=== PATIENT | male | born 1980 | race Caucasian/White ===

== ENCOUNTER 2022-08-02 23:58 | Emergency (ER) | payer OTHER ==
--- NOTE | 2022-08-03 00:38 | ERPHSYRPT ---
- History of Present Illness Time Seen by Provider: 08/03/22 00:33 Source: patient Patient Subjective Stated Complaint: pt states he got up from his chair at 1030 last evening, and tried to put weight on the right foot and states he could not put any weight on it because of the shooting pain in the top and sides of foot which he rates severity of pain 7/10. pt states he has not to his knowledge sustained any prior injury to the right foot. Triage Nursing Assessment: pt is alert and oriented, wheeled back to room in wheelchair unable to put weight on r foot. no swelling or obvious injury present on r foot. Physician History: Patient is a 41-year-old male presents to our ED for evaluation of pain to his right foot. Patient states he was at work. Patient was sitting in transition from sit to stand. Patient placed weight on his right foot and felt a shooting pain at the anteromedial aspect of his right foot. No blunt trauma. No falls. Pain is 7 out of 10. Patient declined pain medication. Patient voices no other complaints or concerns at this time. Portions of this note were created with voice recognition technology. There may be grammatical, spelling, punctuation or sound alike errors Method of Injury: other Occurred: just prior to arrival Quality: constant Severity of Pain-Max: moderate Severity of Pain-Current: mild Lower Extremities Pain: foot: right Modifying Factors: Improves With: movement Associated Symptoms: none Allergies/Adverse Reactions: No Known Drug Allergies Allergy (Unverified 08/03/22 00:17) Travel Risk - International Travel Have you traveled outside of the country in past 3 weeks: No - Coronavirus Screening Are you exhibiting any of the following symptoms?: No Close contact with a COVID-19 positive Pt in past 14-21 Days: No - Vaccine Status Have you recieved a Covid-19 vaccination: Yes Learn To Swim Instructor: Unknown - Vaccination Dates Dates if Unknown: unknown - Review of Systems Constitutional: No Symptoms, No Fever, No Chills Eyes: No Symptoms Ears, Nose, & Throat: No Symptoms Respiratory: No Symptoms, No Cough, No Dyspnea Cardiac: No Symptoms, No Chest Pain, No Edema, No Syncope Abdominal/Gastrointestinal: No Symptoms, No Abdominal Pain, No Nausea, No Vomiting, No Diarrhea Genitourinary Symptoms: No Symptoms, No Dysuria Musculoskeletal: No Symptoms, No Back Pain, No Neck Pain Skin: No Symptoms, No Rash Neurological: No Symptoms, No Dizziness, No Focal Weakness, No Sensory Changes Psychological: No Symptoms Endocrine: No Symptoms Hematologic/Lymphatic: No Symptoms Immunological/Allergic: No Symptoms All Other Systems: Reviewed and Negative - Past Medical History Pertinent Past Medical History: Yes Other Medical History: back injury, eye surgery for nystagmus during childhood - Past Surgical History Past Surgical History: Yes Gastrointestinal: Cholecystectomy - Social History Smoking Status: Current every day smoker How long have you smoked: 20 Drug Use: none - Nursing Vital Signs Nursing Vital Signs: Initial Vital Signs Temperature 97.7 F 08/03/22 00:06 Pulse Rate 63 08/03/22 00:06 Respiratory Rate 18 08/03/22 00:06 Blood Pressure 127/83 08/03/22 00:06 O2 Sat by Pulse Oximetry 98 08/03/22 00:06 Pain Scale Pain Intensity 7 - Physical Exam General Appearance: no apparent distress, alert Eyes, Ears, Nose, Throat Exam: normal ENT inspection, TMs normal, pharynx normal, moist mucous membranes Neck Exam: non-tender, supple Cardiovascular/Respiratory Exam: chest non-tender, normal breath sounds, regular rate/rhythm, no respiratory distress Gastrointestinal/Abdominal Exam: non-tender, soft, guarding Back Exam: normal inspection, No vertebral tenderness Hips Exam: bilateral: non-tender, normal inspection, normal range of motion, no evidence of injury Legs Exam: bilateral leg: non-tender, normal inspection, normal range of motion, no evidence of injury Knees Exam: bilateral knee: non-tender, normal inspection, normal range of motion, no evidence of injury Ankle Exam: bilateral ankle: non-tender, normal range of motion, no evidence of injury Foot Exam: left foot: non-tender, normal inspection, normal range of motion, no evidence of injury, pain, soft tissue tenderness, other (No swelling. No open or draining lesions. Compartments are soft. Cap refill less than 2 seconds. PT DP pulse palpable.) Neuro/Tendon Exam: normal sensation, normal motor functions, normal tendon functions Mental Status Exam: alert, oriented x 3, cooperative Skin Exam: normal color, warm, dry SpO2 Interpretation: normal SpO2: 98 O2 Delivery: Room Air - Course Nursing assessment & vital signs reviewed: Yes - Radiology Exams Foot X-ray Interpretation: Interpreted by me (No fracture or dislocations. No soft tissue abnormalities) Ordered Tests: Active Orders 24 hr Category Date Time Status FOOT (MINIMUM 3 VIEWS) Stat Exams 08/03/22 00:23 Ordered - Progress Progress: improved Progress Note: Patient reassessed. He is resting comfortably. Patient declined pain medication. X-ray negative for fracture dislocation. No soft tissue abnormalities. Patient given bilateral axillary crutches for pain. We will refer patient to the orthopedic clinic for further evaluation and treatment. Portions of this note were created with voice recognition technology. There may be grammatical, spelling, punctuation or sound alike errors 08/03/22 00:38 Counseled pt/family regarding: diagnosis, need for follow-up, rad results - Departure Departure Disposition: Home Clinical Impression: Foot sprain Condition: Stable Critical Care Time: No Additional Instructions: Discharge/Care Plan HAFSA ZELAYA was seen on 08/03/22 in the Emergency Room. The patient was counseled regarding Diagnosis,Lab results, Imaging studies, need for follow up and when to return to the Emergency Room. Prescriptions given: Discharge Note I have spoken with the patient and/or caregivers. I have explained the patient's condition, diagnosis and treatment plan based on the information available to me at this time. I have answered the patient's and/or caregiver's questions and addressed any concerns. The patient and/or caregivers have as good understanding of the patient's diagnosis, condition and treatment plan as can be expected at this point. The vital signs have been stable. The patient's condition is stable and appropriate for discharge from the emergency department. The patient will pursue further outpatient evaluation with the primary care physician or other designated or consulting physician as outlined in the discharge instructions. The patient and/or caregivers are agreeable to this plan of care and follow-up instructions have been explained in detail. The patient and/or caregivers have received these instruction. The patient/and or caregivers are aware that any significant change in condition or worsening of symptoms should prompt an immediate return to this or the closest emergency department or call 911. Outpatient Orders: Ortho Referral Time Frame: 1 Day, Facility: [facility] Hosp, Location: ORTHO CLINIC
[2022-08-03 01:00] VITALS: BP 112/72; PULSE 96; O2SAT 96
--- NOTE | 2022-08-03 08:30 | XRAY ---
Exam: 3 view right foot series from 08/03/2022. Comparison: [None.] Indication: 41-year-old male with right flank injury; "rolled" right foot while going down steps at work tonight; mid lateral right foot pain. Findings: AP, oblique, and lateral radiographs of the right foot were obtained. I see no acute fracture or dislocation of the right foot. Specifically, the base of the right fifth metatarsal appears intact. The joint spaces appear unremarkable. There is a normal plantar arch. No calcaneal spurring is seen. No radiopaque soft tissue foreign body is seen. No other focal bone lesion is seen. Impression: 1. No acute right foot fracture or dislocation is seen.
== END 2022-08-03 00:56 | disposition home or self-care (01) ==
LOC: ED 23:58
DX: S93.601A Unspecified sprain of right foot, initial encounter (principal); Z72.0 Tobacco use
CPT/HCPCS: 73630; 99282

== ENCOUNTER 2022-08-12 23:57 | Emergency (ER) | payer BC, OTHER ==
[2022-08-13 00:03] VITALS: O2SAT 97
--- NOTE | 2022-08-13 00:04 | ERPHSYRPT ---
- History of Present Illness Time Seen by Provider: 08/13/22 00:04 Historian: patient Exam Limitations: no limitations Physician History: This is a 41-year-old white male patient who works at the [employer] who does not have a cardiac history but has noticed intermittent left anterior chest pain crampiness that is localized and nonradiating for several years. However, 5 d ays ago, the same above left anterior chest pain became more constant and he became concerned. He has never been diagnosed with any heart disease. He is a chronic smoker. He has cut back on drinking 6 Mountain Dew's a day down to 1 Mountain Dew drink every other day. Quality: cramping (Worse when bending forward) Location: other (Left anterior) Chest Pain Radiation: no radiation Severity of Pain-Max: mild Severity of Pain-Current: mild Modifying Factors: Improves With: change in position (Ending forward worsens) Associated Symptoms: denies symptoms Prior Chest Pain/Cardiac Workup: no prior cardiac workup Nitro Today/Relief: no nitro taken today Aspirin Treatment Today: no aspirin today Allergies/Adverse Reactions: acetaminophen [From Vicodin] Adverse Reaction (Severe, Verified 08/13/22 00:11) Vomiting hydrocodone [From Vicodin] Adverse Reaction (Severe, Verified 08/13/22 00:11) Vomiting Home Medications: No Reportable Medications [No Reported Medications] 08/13/22 [History] Travel Risk - International Travel Have you traveled outside of the country in past 3 weeks: No - Coronavirus Screening Are you exhibiting any of the following symptoms?: No Close contact with a COVID-19 positive Pt in past 14-21 Days: No - Vaccine Status Have you recieved a Covid-19 vaccination: Yes Skein Inspector: Unknown - Vaccination Dates Dates if Unknown: unknown - Review of Systems Constitutional: No Symptoms Eyes: No Symptoms Ears, Nose, & Throat: No Symptoms Respiratory: No Symptoms Cardiac: No Symptoms Abdominal/Gastrointestinal: No Symptoms Genitourinary Symptoms: No Symptoms Musculoskeletal: No Symptoms Skin: No Symptoms Neurological: No Symptoms Psychological: No Symptoms Endocrine: No Symptoms Hematologic/Lymphatic: No Symptoms Immunological/Allergic: No Symptoms All Other Systems: Reviewed and Negative - Past Medical History Pertinent Past Medical History: Yes Other Medical History: back injury, eye surgery for nystagmus during childhood - Past Surgical History Past Surgical History: Yes Gastrointestinal: Cholecystectomy - Social History Smoking Status: Current every day smoker How long have you smoked: 20 Drug Use: none - Nursing Vital Signs Nursing Vital Signs: Initial Vital Signs Temperature 98.7 F 08/13/22 00:00 Pulse Rate 96 H 08/13/22 00:00 Respiratory Rate 20 08/13/22 00:00 Blood Pressure 126/86 08/13/22 00:00 O2 Sat by Pulse Oximetry 97 08/13/22 00:00 Pain Scale Pain Intensity 8 - Physical Exam General Appearance: no apparent distress, alert, anxiety Eye Exam: PERRL/EOMI, eyes nml inspection Ears, Nose, Throat Exam: normal ENT inspection, moist mucous membranes Neck Exam: normal inspection, non-tender, supple, full range of motion Respiratory Exam: normal breath sounds, chest tenderness, lungs clear, airway intact, No respiratory distress Cardiovascular Exam: regular rate/rhythm, normal heart sounds, normal peripheral pulses Gastrointestinal/Abdomen Exam: soft, normal bowel sounds, No tenderness Rectal Exam: not done Back Exam: normal inspection, normal range of motion, No CVA tenderness, No vertebral tenderness Extremity Exam: normal inspection, normal range of motion, pelvis stable Neurologic Exam: alert, oriented x 3, cooperative, production quality analyst II-XII nml as tested, normal mood/affect, nml cerebellar function, nml station & gait, sensation nml Skin Exam: normal color, warm, dry Lymphatic Exam: No adenopathy SpO2 Interpretation: normal SpO2: 97 O2 Delivery: Room Air - Course Nursing assessment & vital signs reviewed: Yes EKG Interpreted by Me: RATE ([id number]), Sinus Rhythm, LAFB, NORMAL INTERVALS, NORMAL QRS, Other (No acute ischemic changes on today's EKG. There is no prior twelve-lead EKG available to compare to.) Ordered Tests: Active Orders 24 hr Category Date Time Status EKG-ER Only STAT Care 08/13/22 00:26 Active IV Insertion STAT Care 08/13/22 00:26 Active Pulse Oximetry (ED) STAT Care 08/13/22 00:26 Active CBC W DIFF Stat Lab 08/13/22 00:30 Completed CMP Stat Lab 08/13/22 00:30 Completed D-DIMER QUANTITATIVE Stat Lab 08/13/22 00:30 Completed TROPONIN Q4H Lab 08/13/22 00:30 Completed TROPONIN Q4H Lab 08/13/22 04:30 Ordered TROPONIN Q4H Lab 08/13/22 08:30 Ordered Medication Summary Discontinued Medications Generic Name Dose Route Start Last Admin Trade Name Humaira PRN Reason Stop Dose Admin Aspirin 324 mg 08/13/22 00:26 08/13/22 01:07 Aspirin 81 Mg Tab.Chew PO 08/13/22 00:27 324 mg STAT ONE Administration Aspirin Confirm 08/13/22 01:07 Aspirin 81 Mg Tab.Chew Administered 08/13/22 01:08 Dose 324 mg .ROUTE .STK-MED ONE Lab/Rad Data: Laboratory Result Diagrams 08/13/22 00:30 08/13/22 00:30 Laboratory Results 08/13/22 08/13/22 08/13/22 Range/Units 00:30 00:30 00:30 WBC (4.0-10.5) x10^3/uL RBC (4.1-5.6) x10^6/uL Hgb (12.5-18.0) g/dL Hct (42-50) % MCV (78-100) fL MCH (26-32) pg MCHC (32-36) g/dL RDW (11.5-14.0) % Plt Count (150-450) x10^3/uL MPV (7.5-11.0) fL Gran % (36.0-66.0) % Immature Gran % (Auto) (0.00-0.4) % Nucleat RBC Rel Count (0.00-0.1) % Eos # (Auto) (0-0.5) x10^3/uL Immature Gran # (Auto) (0.00-0.03) x10^3u/L Absolute Lymphs (auto) (1.0-4.6) x10^3/uL Absolute Monos (auto) (0.0-1.3) x10^3/uL Absolute Nucleated RBC (0.00-0.01) x10^3u/L Lymphocytes % (24.0-44.0) % Monocytes % (0.0-12.0) % Eosinophils % (0.00-5.0) % Basophils % (0.0-0.4) % Absolute Granulocytes (1.4-6.9) x10^3/uL Basophils # (0-0.4) x10^3/uL D-Dimer 0.29 (0.0-0.50) mg/L Sodium 139 (137-145) mmol/L Potassium 3.9 (3.5-5.1) mmol/L Chloride 104 (98-107) mmol/L Carbon Dioxide 26 (22-30) mmol/L Anion Gap 12.4 (5-15) MEQ/L BUN 18 (9-20) mg/dL Creatinine 1.19 (0.66-1.25) mg/dL Estimated GFR > 60.0 ML/MIN Glucose 136 H (74-106) mg/dL Calcium 9.3 (8.4-10.2) mg/dL Total Bilirubin 0.40 (0.2-1.3) mg/dL AST 31 (17-59) U/L ALT 35 (0-50) U/L Alkaline Phosphatase 71 (38-126) U/L Troponin I < 0.012 (0.000-0.034) ng/mL Serum Total Protein 7.6 (6.3-8.2) g/dL Albumin 4.5 (3.5-5.0) g/dL 08/13/22 Range/Units 00:30 WBC 7.2 (4.0-10.5) x10^3/uL RBC 4.72 (4.1-5.6) x10^6/uL Hgb 14.2 (12.5-18.0) g/dL Hct 42.9 (42-50) % MCV 90.9 (78-100) fL MCH 30.1 (26-32) pg MCHC 33.1 (32-36) g/dL RDW 13.2 (11.5-14.0) % Plt Count 196 (150-450) x10^3/uL MPV 10.2 (7.5-11.0) fL Gran % 54.5 (36.0-66.0) % Immature Gran % (Auto) 0.6 H (0.00-0.4) % Nucleat RBC Rel Count 0.0 (0.00-0.1) % Eos # (Auto) 0.19 (0-0.5) x10^3/uL Immature Gran # (Auto) 0.04 H (0.00-0.03) x10^3u/L Absolute Lymphs (auto) 2.29 (1.0-4.6) x10^3/uL Absolute Monos (auto) 0.68 (0.0-1.3) x10^3/uL Absolute Nucleated RBC 0.00 (0.00-0.01) x10^3u/L Lymphocytes % 31.8 (24.0-44.0) % Monocytes % 9.4 (0.0-12.0) % Eosinophils % 2.6 (0.00-5.0) % Basophils % 1.1 (0.0-0.4) % Absolute Granulocytes 3.93 (1.4-6.9) x10^3/uL Basophils # 0.08 (0-0.4) x10^3/uL D-Dimer (0.0-0.50) mg/L Sodium (137-145) mmol/L Potassium (3.5-5.1) mmol/L Chloride (98-107) mmol/L Carbon Dioxide (22-30) mmol/L Anion Gap (5-15) MEQ/L BUN (9-20) mg/dL Creatinine (0.66-1.25) mg/dL Estimated GFR ML/MIN Glucose (74-106) mg/dL Calcium (8.4-10.2) mg/dL Total Bilirubin (0.2-1.3) mg/dL AST (17-59) U/L ALT (0-50) U/L Alkaline Phosphatase (38-126) U/L Troponin I (0.000-0.034) ng/mL Serum Total Protein (6.3-8.2) g/dL Albumin (3.5-5.0) g/dL - Progress Progress: improved, re-examined Air Movement: good Blood Culture(s) Obtained: No Antibiotics given: No Counseled pt/family regarding: lab results, diagnosis, need for follow-up - Departure Departure Disposition: Home Clinical Impression: Non-cardiac chest pain Condition: Stable Critical Care Time: No Referrals: DOCTOR,NO FAMILY [Primary Care Provider] - Follow up/PCP as directed Additional Instructions: Take an aspirin daily. Follow-up with your primary care physician later today by phone, to make an appointment for further evaluation and management.
[2022-08-13] MEDS ORDERED: BABY ASPIRIN 81 MG CHEW PO ONE (00:26)
[2022-08-13 00:34] LABS: Absolute Neutrophil Ct (ANC) 3.93 x10^3/uL (1.4-6.9); Basophil (Absolute #) 0.08 x10^3/uL (0-0.4); Eosinophil % 2.6 % (0.00-5.0); Eosinophil (Absolute #) 0.19 x10^3/uL (0-0.5); Hematocrit 42.9 % (42-50); Hemoglobin 14.2 g/dL (12.5-18.0); Lymphocyte (Absolute #) 2.29 x10^3/uL (1.0-4.6); Lymphocytes % 31.8 % (24.0-44.0); Mean Cell Volume 90.9 fL (78-100); Mean Corpuscular Hemoglobin 30.1 pg (26-32); Mean Corpuscular Hgb Concent. 33.1 g/dL (32-36); Mean Platelet Volume 10.2 fL (7.5-11.0); Monocyte (Absolute #) 0.68 x10^3/uL (0.0-1.3); Monocytes % 9.4 % (0.0-12.0); Neutrophil % 54.5 % (36.0-66.0); Platelet Count 196 x10^3/uL (150-450); Red Blood Count 4.72 x10^6/uL (4.1-5.6); Red Cell Distribution Width 13.2 % (11.5-14.0); White Blood Count 7.2 x10^3/uL (4.0-10.5)
[2022-08-13 00:41] LABS: ALBUMIN 4.5 g/dL (3.5-5.0); ALKALINE PHOSPHATASE 71 U/L (38-126); ANION GAP 12.4 MEQ/L (5-15); BLOOD UREA NITROGEN 18 mg/dL (9-20); CHLORIDE 104 mmol/L (98-107); Calcium 9.3 mg/dL (8.4-10.2); Carbon Dioxide 26 mmol/L (22-30); Creatinine 1 1.19 mg/dL (0.66-1.25); EST GLOMERULAR FILTRATION RATE > 60.0 ML/MIN; Glucose 136 mg/dL (74-106); Potassium 3.9 mmol/L (3.5-5.1); SGOT/AST 31 U/L (17-59); SGPT/ALT 35 U/L (0-50); SODIUM 139 mmol/L (137-145); Total Protein 7.6 g/dL (6.3-8.2)
[2022-08-13] MEDS ORDERED: BABY ASPIRIN 81 MG CHEW ONE (01:07)
[2022-08-13 02:04] VITALS: BP 113/79; PULSE 72
== END 2022-08-13 02:28 | disposition home or self-care (01) ==
LOC: ED 23:57
DX: R07.89 Other chest pain (principal); Z72.0 Tobacco use
CPT/HCPCS: 36000; 36415; 80053; 84484; 85025; 85379; 93005; 94760; 99284; A9270-GY